=== PATIENT | male | born 1965 | race Caucasian/White ===

== ENCOUNTER 2023-09-15 18:44 | Inpatient (IN) | payer OTHER ==
[~2023-09-15] VITALS: Ht 182.9 cm; Wt 111.1 kg
[2023-09-15] MEDS ORDERED: Thiamine HCl 100 MG Tab PO ONE (19:55)
[2023-09-15] MEDS ORDERED: Lactated Ringer's 1,000 ML IV ONE ×2 (19:55→22:40)
[2023-09-15 21:26] LABS: BASOPHILS ABSOLUTE AUTO 0.11 K/mm3 (0.00-0.23); BASOPHILS PERCENT AUTO 1 % (0-2); EOSINOPHILS ABSOLUTE AUTO 0.08 K/mm3 (0.00-0.68); EOSINOPHILS PERCENT AUTO 1 % (0-6); Hematocrit 46.3 % (37.0-53.0); IMMATURE GRAN ABSOLUTE AUTO 0.08 K/mm3 (0.00-0.10); IMMATURE GRAN PERCENT AUTO 1 % (0-1); LYMPHOCYTES ABSOLUTE AUTO 2.54 K/mm3 (0.84-5.20); LYMPHOCYTES PERCENT AUTO 17 % (21-46); MONOCYTES ABSOLUTE AUTO 1.26 K/mm3 (0.16-1.47); MONOCYTES PERCENT AUTO 9 % (4-13); Mean Corpuscular HGB 28.5 pg (26.0-34.0); Mean Corpuscular HGB Conc 32.4 g/dL (31.5-36.5); Mean Corpuscular Volume 88 fL (80-100); Mean Platelet Volume 9.1 fL (9.1-12.4); NEUTROPHILS ABSOLUTE AUTO 10.51 K/mm3 (1.96-9.15); NEUTROPHILS PERCENT AUTO 72 % (41-73); Platelet Count 253 K/mm3 (150-400); RDW Coefficient Variation 17.6 % (11.7-14.2); RDW Standard Deviation 54.6 fL (35.1-46.3); Red Blood Cell Count 5.26 M/mm3 (4.30-5.90); White Blood Cell Count 14.58 K/mm3 (4.00-11.30)
[2023-09-15 21:44] LABS: Source, Urine Clean Catch
[2023-09-15 21:54] LABS: Appearance, Urine Clear (Clear); Bilirubin, Urine Neg (Neg); Blood, Urine 3+ (Neg); Color, Urine Yellow (P-Yellow); Glucose Qualitative, Urine Neg (Neg); Ketones, Urine 1+ (Neg); Leukocyte Esterase, Urine Neg (Neg); Nitrite, Urine Neg (Neg); Protein, Urine 2+ (Neg); Specific Gravity, Urine 1.015 (1.003-1.022); Urobilinogen, Urine NORM (Normal)
[2023-09-15 21:55] LABS: Magnesium, Blood 1.8 mg/dL (1.6-2.4)
[2023-09-15 22:03] LABS: Alanine Aminotransfer (ALT/SGP 14 U/L (12-78); Albumin/Globulin Ratio 0.8 (0.8-1.8); Alk Phos 85 U/L (50-136); Anion Gap 11 mmol/L (3-11); Aspartate Aminotrans (AST/SGOT 19 U/L (12-37); Bilirubin, Total 1.1 mg/dL (0.1-1.0); Blood Urea Nitrogen 26 mg/dL (8-24); Bun/Creatinine Ratio 14.2 (12.0-20.0); CO2, Blood 25 mmol/L (21-32); Calcium, Blood 8.9 mg/dL (8.5-10.1); Chloride, Blood 106 mmol/L (98-108); Creatinine, Blood 1.83 mg/dL (0.60-1.20); Ethanol (Alcohol), Blood, Med <3 mg/dL; Globulin, Blood 3.9 g/dL (2.2-4.0); Glomerular Filtration Rate 42 (60-); Glucose, Blood 150 mg/dL (70-99); Potassium, Blood 4.4 mmol/L (3.5-5.5); Sodium, Blood 138 mmol/L (136-145); Total Protein, Blood 6.9 g/dL (6.4-8.2)
[2023-09-15 22:04] LABS: Bacteria Few /hpf; Squamous Epithelial Cells Rare /hpf (Few); White Blood Cells, Urine 0-2 /hpf (0-5)
[2023-09-15 22:16] LABS: U Amphetamine Screen Not Detected; U Barbituate Screen Not Detected; U Benzodiazapine Screen DETECTED; U Buprenorphine Screen DETECTED; U Cannabinoids Screen Not Detected; U Cocaine Screen Not Detected; U Methadone Screen Not Detected; U Methamphetamine Screen Not Detected; U Opiates Screen Not Detected; U Oxycodone Screen Not Detected; U Phencyclidine Screen Not Detected
[2023-09-15] MEDS ORDERED: Aspirin 81 MG Chew PO ONE (22:40)
[2023-09-15 23:05] LABS: Influenza A, PCR NEGATIVE (NEGATIVE); Influenza B, PCR NEGATIVE (NEGATIVE); Resp Syncytial Virus, PCR NEGATIVE (NEGATIVE); SARS-Cov-2 (COVID-19) PCR, MMC NEGATIVE (NEGATIVE)
[2023-09-15] MEDS ORDERED: Ondansetron HCl 2 MG / ML 2ML Vial IV PRN (23:45)
[2023-09-15] MEDS ORDERED: ChlordiazePOXIDE 25 MG Cap PO PRN (23:45)
[2023-09-15] MEDS ORDERED: LORazepam 2 MG/ML 1ML Injection IV PRN (23:45)
[2023-09-15] MEDS ORDERED: Acetaminophen 325 MG TABLET PO PRN (23:45)
[2023-09-16 00:03] LABS: International Normalized Ratio 1.14; Prothrombin Time Results 12.1 Sec (9.7-11.5)
[2023-09-16] MEDS ORDERED: HydrALAZINE HCl 20 MG / ML 1ML Vial IV PRN (00:05)
[2023-09-16] MEDS ORDERED: ChlordiazePOXIDE 25 MG Cap PO PRN (00:05)
[2023-09-16] MEDS ORDERED: LORazepam 2 MG/ML 1ML Injection IV PRN ×2 (00:05)
[2023-09-16] MEDS ORDERED: Thiamine HCl 500 MG in NS 100 ML IV SCH (00:18)
[2023-09-16 03:12] VITALS: BP 137/74
[2023-09-16] MEDS ORDERED: METO50ER PO (03:14)
[2023-09-16] MEDS ORDERED: FOLIC ACID0.4 MG PO (03:15)
[2023-09-16] MEDS ORDERED: VITAMIN B-1100 M1 PO (03:15)
[2023-09-16] MEDS ORDERED: LOSARTAN POTAS100 MG PO (03:16)
[2023-09-16] MEDS ORDERED: AMLO10 PO (03:16)
[2023-09-16] MEDS ORDERED: BUPRENORPHINE-1 EACH SL (03:17)
[2023-09-16] MEDS ORDERED: TRAZ50 PO (03:18)
[2023-09-16] MEDS ORDERED: Phenergan25 M1 PO (03:18)
[2023-09-16] MEDS ORDERED: NICO21TP TOP (03:19)
[2023-09-16] MEDS ORDERED: NICORETTE4 M1 BC (03:20)
[2023-09-16] MEDS ORDERED: METOPROLOL TART25 MG PO (03:21)
[2023-09-16] MEDS ORDERED: MULTI-VITAMIN1 EAC2 PO (03:21)
[2023-09-16] MEDS ORDERED: NALOXONE HCL4 MG (03:21)
[2023-09-16] MEDS ORDERED: Ativan1 MG PO (03:22)
[2023-09-16] MEDS ORDERED: HYDPAM50 PO (03:22)
[2023-09-16] MEDS ORDERED: NEURONTIN300 MG PO (03:23)
[2023-09-16] MEDS ORDERED: CARVEDILOL25 M9 PO (03:24)
[2023-09-16] MEDS ORDERED: CATAPRES0.1 MG PO (03:24)
[2023-09-16] MEDS ORDERED: Azithromycin 500 MG in NS 250 ML IV SCH (03:41)
[2023-09-16] MEDS ORDERED: CefTRIAXone Sodium 1,000 MG in NS 100 ML IV SCH (03:41)
--- NOTE | 2023-09-16 05:55 | NUR ---
PT IS A&O X3 (CONFUSION TO SITUATION), CURRENT TEMP IS 100.3, BP 161/99, PULSE, 87, AND O2 94 ON 3L OF OXYGEN, LAST CIWA SCORE WWAS 16. BOTH ATIVAN AND LIBRIUM WERE GIVEN. PT IS AT A HIGH RISK FOR FALL DUE TO SEVERE WEAKNESS AND CONFUSION. BED ALARM IS ON, CALL LIGHT IN REACH AND BED IS IN A LOWER POSITION.
[2023-09-16 06:18] LABS: BASOPHILS PERCENT AUTO 1 % (0-2); EOSINOPHILS ABSOLUTE AUTO 0.12 K/mm3 (0.00-0.68); EOSINOPHILS PERCENT AUTO 1 % (0-6); Hematocrit 43.9 % (37.0-53.0); Hemoglobin 14.4 g/dL (13.5-17.5); IMMATURE GRAN ABSOLUTE AUTO 0.05 K/mm3 (0.00-0.10); IMMATURE GRAN PERCENT AUTO 0 % (0-1); LYMPHOCYTES PERCENT AUTO 21 % (21-46); MONOCYTES ABSOLUTE AUTO 0.97 K/mm3 (0.16-1.47); MONOCYTES PERCENT AUTO 8 % (4-13); Mean Corpuscular HGB 28.9 pg (26.0-34.0); Mean Corpuscular HGB Conc 32.8 g/dL (31.5-36.5); Mean Corpuscular Volume 88 fL (80-100); Mean Platelet Volume 9.5 fL (9.1-12.4); NEUTROPHILS ABSOLUTE AUTO 7.95 K/mm3 (1.96-9.15); NEUTROPHILS PERCENT AUTO 68 % (41-73); Platelet Count 234 K/mm3 (150-400); RDW Coefficient Variation 17.6 % (11.7-14.2); RDW Standard Deviation 55.9 fL (35.1-46.3); Red Blood Cell Count 4.99 M/mm3 (4.30-5.90); White Blood Cell Count 11.69 K/mm3 (4.00-11.30)
[2023-09-16 06:44] LABS: CHOL/HDL RATIO 2.8; Cholesterol 143 mg/dL (50-200); HDL Cholesterol 51 mg/dL (>39); LDL/HDL RATIO 1.3; Low Density Lipoprotein Chol 65 mg/dL (0-110); Triglycerides 135 mg/dL (30-160); Very Low Density Lipoprot Chol 27 mg/dL (6-32)
[2023-09-16 07:04] LABS: Albumin, Blood 2.8 g/dL (3.4-5.0); Albumin/Globulin Ratio 0.7 (0.8-1.8); Bilirubin, Total 1.1 mg/dL (0.1-1.0); Bun/Creatinine Ratio 15.3 (12.0-20.0); Calcium, Blood 8.7 mg/dL (8.5-10.1); Creatinine, Blood 1.7 mg/dL (0.60-1.20); Globulin, Blood 3.8 g/dL (2.2-4.0); Potassium, Blood 3.8 mmol/L (3.5-5.5); Total Protein, Blood 6.6 g/dL (6.4-8.2)
[2023-09-16 07:57] VITALS: BP 141/83
[2023-09-16] MEDS ORDERED: Aspirin 81 MG Chew PO SCH (09:00)
[2023-09-16] MEDS ORDERED: Enoxaparin 40 MG/0.4 ML SYR SC SCH (09:00)
[2023-09-16] MEDS ORDERED: NS 500 ML IV ONE (10:35)
[2023-09-16] MEDS ORDERED: Nicotine 14 MG PATCH TOP ONE (11:05)
[2023-09-16] MEDS ORDERED: NS 500 ML IV SCH (13:10)
[2023-09-16 16:49] VITALS: BP 123/88
[2023-09-16 19:20] VITALS: BP 149/84
--- NOTE | 2023-09-16 19:35 | NUR ---
SUMMARY- PT ALERT TO SELF AND THAT HE'S IN THE HOSPITAL. HAVING VISUAL HALLUCINATIONS, THINKS THE CALL LIGHT IS HIS PHONE. MAKES MOTIONS WITH HANDS LIKE HE'S TIPPING A GLASS IF DRINKING. CIWAA'S THIS AM 12, DOWN TO 8-10 LATER AFTERNOON. LIBRIUM 50MG X2 TODAY AND ATIVAN 1MG IV ONCE. AT TIMES HE STATES HE FEELS LIKE HE'S CRAWLING OUT OF HIS SKIN. MOST OF THE TIME IS IN THE CHAIR RESTING WITH EYES CLOSED AND AWAKENS WITH A START, ANXIOUS AND AGGITATED DURING WAKING HOURS. INCONT URINE MOST OF THE DAY. MISSED THE URINAL AND DENIED HE HAD TO GO AND WOULD BE INCONT SOON AFTER. SET OFF BED ALARM MULT TIMES USUALLY IN RELATION TO NEEDING TO VOID. USING CHAIR ALARM. REPORTED TO MARIO POWERS RN
[2023-09-17 03:31] VITALS: BP 132/76
--- NOTE | 2023-09-17 04:22 | NUR ---
SHIFT SUMMARY ADMITTED FOR ALCOHOL WITHDRAWAL. FULL CODE. LOW GRADE FEVERS NOTED. LIBRIUM AND TYLENOL GIVEN THIS SHIFT. CIWAS ARE 8 FOR ME, BUT I HAVE STEADILY KEPT ON THE LIBRIUM WITH THIS PATIENT. CARDIAC DIET. A&O X2-3. HE IS IMPULSIVE AT TIMES, BUT PLEASANT. 2 PERSON ASSIST TO BSC DUE TO UNSTEADINESS ON HIS FEET. SIGNIFICANT TREMORS AT TIMES. NO HALLUCINATIONS NOTED THIS SHIFT, HOWEVER HE DID ASK ME WHY HE IS HERE. HX OF POLYSUBSTANCE ABUSE. SUSPICION OF PNEUMONIA, MONITORING LABS. ANTIB RX ARE SCHEDULED.
[2023-09-17 06:25] LABS: Bun/Creatinine Ratio 16.4 (12.0-20.0); Calcium, Blood 8.5 mg/dL (8.5-10.1); Creatinine, Blood 1.77 mg/dL (0.60-1.20); Potassium, Blood 4.3 mmol/L (3.5-5.5)
[2023-09-17 07:20] VITALS: BP 137/82
[2023-09-17] MEDS ORDERED: Nicotine 14 MG PATCH TOP SCH (09:00)
[2023-09-17 14:54] VITALS: BP 111/71
--- NOTE | 2023-09-17 16:17 | NUR ---
SUMMARY- PT ALERT TO SELF, YEAR PRESICENT AND FINALLY REMEMBERING HE IS IN [place] FOR ETOH DETOX. NAPPING FREQ T/O THE DAY. GETS UP OOB WITH SBA WALKER GAITBELT. ADQ STENGTH, LEANS FORWARD SLOW GAIT. CIWA'S 8 THIS AM DOWN TO 6. LIBRIUM 50MG APPROX Q3-4 EFFECTIVE TO AID "SKIN CRAWLING" AND TREMORS, ANXIETY AND AGITATION. TOLERATING FOOD AND FLUID, SNACKS IN BETWEEN. SITS UP IN CHAIR FOR MEALS. OCC SETS OFF BED ALARM AND CHAIR ALARM USUALLY NEEDING TO GO TO BATHROOM, USED CALL LIGHT HALF THE TIME. [facility] CALLED AND STATED THE 5 DAY DETOX WOULD END 09/17 AND PT WOULD NOT BE DC'D TO THEM. PIPE ORGAN TECHNICIAN MADE AWARE AND WORKING ON HOW TO GO ABOUT A [facility] OUTPATIENT PLAN FOR PT TO SUCCEED IN [place]. ELENA IS FRIEND THAT GOT PT TO COME IN FOR DETOX AND INSISTS HE RECEIVE AFTERCARE, STATES HE WILL GO OUT AND USE DRUGS OR ETOH IF HE DOESNT HAVE SOMETHING FOR HIS ANXIETY. WILL REPORT TO NOC RN
[2023-09-17 19:41] VITALS: BP 155/94
[2023-09-18 02:35] VITALS: BP 148/89
--- NOTE | 2023-09-18 05:44 | NUR ---
SHIFT SUMMARY PT ALERT AND ORIENTED X4. CIWA SCORES BETWEEN 8-10 THROUGHOUT THE NIGHT. PT COMPLAINS OF MODERATE ANXIETY AND TREMORS. CONTROLLED WITH LIBRIUM PER EMAR. PT PROVIDED SEVERAL SNACKS AND DRINKS THROUGHOUT THE NIGHT WITH GOOD INTAKE. PT IS A ONE PERSON ASSIST TO STANDBY ASSIST.
--- NOTE | 2023-09-18 06:04 | NUR ---
CTA/HUMAN RESOURCES MANAGER MANUFACTURING I HAVE READ THE HUMAN RESOURCES MANAGER MANUFACTURING DOCUMENTATION. SHIFT SUMMARY IS IN HUMAN RESOURCES MANAGER MANUFACTURING NOTES
[2023-09-18 07:15] VITALS: BP 128/85
[2023-09-18 15:26] VITALS: BP 115/78
--- NOTE | 2023-09-18 18:05 | NUR ---
SHIFT SUMMARY: PATIENT A/O TO SELF, PLACED AND CURRENT SITUATION, PLEASANT AND COOPERATIVE c CARE. PATIENT HAS VISIBLE TREMORS TO BUE'S, CIWA SCORE RANGES 7-8, MEDICATED c PRN LIBRIUM X2 c GOOD EFFECT. PATIENT RESTING ON/OFF IN BED/CHAIR T/O SHIFT. PATIENT SITTING UP IN THE RECLINER CHAIR FOR ABOUT 5 HRS THIS SHIFT, TOLERATED WELL. PATIENT CONTINENCE OF BLADDER, AMBULATES TO BATHROOM/BACK IN BED/CHAIR c 1 ASSIST/GAITBELT/FWW. PATIENT HAS GOOD APPETITE, DENIES CP/PRESSURE, SOB AND DIZZINESS. PATIENT RECEIVED SCHEDULED MEDS PER EMAR. VITAL SIGNS REVIEWED. PIV TO LAC SALINE LOCKED. BED ALARM ON FOR SAFETY. CALL LIGHT IN REACH.
[2023-09-18 19:24] VITALS: BP 125/86
[2023-09-19] MEDS ORDERED: NS 250 ML IV PRN (04:50)
[2023-09-19 05:34] VITALS: BP 138/89
--- NOTE | 2023-09-19 07:31 | NUR ---
MECHANICAL SYSTEM TECHNICIAN SUMMARY NO ACTUE CHANGES. PT A/OX3. CONFUSION AND FORGETFULNESS. CONT WITH CIWA APROX Q4 HOURS. PT SCORE BETWEEN 8-10; VISIBLE TREMORS, MOIST SKIN, ANXIOUS, LIGHT SENSITIVITY, AND SLIGHT AGITATION. MED WITH LIBRIUM. PT NOT USING CALL LIGHT BUT WILL CALL OUT TO GET STAFF ATTENTION.
[2023-09-19 07:38] VITALS: BP 123/80
[2023-09-19 09:34] LABS: Bun/Creatinine Ratio 18.4 (12.0-20.0); Calcium, Blood 8.9 mg/dL (8.5-10.1); Creatinine, Blood 1.03 mg/dL (0.60-1.20); Potassium, Blood 4.7 mmol/L (3.5-5.5)
[2023-09-19] MEDS ORDERED: ChlordiazePOXIDE 10 MG Cap PO PRN (11:25)
--- NOTE | 2023-09-19 13:56 | NUR ---
NOTE: PATIENT REPORTS PAIN 8/10 TO LOWER BACK, STATED "AT HOME I USUALLY SMOKE HEROIN TO HELP EASE THE PAIN.". PATIENT MEDICATED c PO TYLENOL. PATIENT REPORTS "TYLENOL IS NOT GONNA WORK." NOTIFIED DR. LUCIO rogers THIS ISSUE. RECEIVED ORDER TO GIVE OT DOSE OF NORCO PO 5/325 MG NOW.
[2023-09-19] MEDS ORDERED: HYDROcodone 5-APAP 325 TAB PO ONE ×2 (14:05→21:30)
[2023-09-19 15:07] VITALS: BP 130/89
--- NOTE | 2023-09-19 16:27 | NUR ---
SHIFT SUMMARY: PATIENT A/O TO SELF, PLACED AND CURRENT SITUATION, BUT CONFUSED TO DATES. PATIENT VISIBLE TREMORS TO BUE'S HAS IMPROVED. CIWA SCORE RANGES 4-8 THIS SHIFT. PATIENT REPORTS PAIN 8/10 TO LOWER BACK, MEDICATED c PRN TYLENOL c NO EFFECT. PATIENT MEDICATED c PO OT DOSE NORCO, REPORTS PAIN DOWN TO 3/10. PATIENT SHOWERED, LINEN CHANGED, CONTINENCE OF BOWELS/BLADDER, AMBULATES TO BATHROOM/BACK IN BED/CHAIR c SBA/FWW/GAITBELT. PATIENT SLEPT ON/OFF IN BED/RECLINER T/O SHIFT. PATIENT EATING AND DRINKING WELL. PATIENT ALSO PROVIDED c SNACKS (YOGURT) PER REQUEST T/O SHIFT. PATIENT HAS NO COMPLAINTS OR DENIES NEW CONCERNED, WHEN ASKED. VITAL SIGNS REVIEWED. PIV TO YAAKOV SALINE LOCKED. BED ALARM ON FOR SAFETY. CALL LIGHT IN REACH.
[2023-09-19 19:27] VITALS: BP 119/72
[2023-09-20 04:03] VITALS: BP 149/97
--- NOTE | 2023-09-20 04:14 | NUR ---
STEAM PRESS TENDER SUMMARY PT A/OX3. FORGETFUL. PT AFFECT FLAT AND WITHDRAWN. PT DOES NOT USE CALL LIGHT BUT WILL CALL OUT VERBALLY TO MAKE NEEDS KNOWN. PT C/O OF CHRONIC LOW BACK PAIN WITH 10/10 PAIN. CALL TO BEEF RIBBER/DR BRUNO. NEW ORDER FOR 1X NORCO 3/325. NO TREMORS--VISIBLE OR FELT. PT DENIES [place], LIGHT SENSITIVITY, AGITATION. PT IS ANIXIOUS AND ASKING ABOUT GOING HOME. PT ASKED ABOUT GOING OUTSIDE TO SMOKE. EDUCATION REINFORCED ABOUT IGNITION SOURCES AND BEING A NON SMOKING CAMPUS. PT WOULD HAVE TO LEAVE HOSPITAL TO SMOKE. PT HAS NICOTINE PATCH IN PLACE ON SHOULDER. PT WAS FIXATED ON LEAVING TO SMOKING AND POTENTIALLY DISCHARGING FROM HOSPITAL. HOWEVER, PT WAS AGREEABLE/REDIRECTABLE TO RETURNING TO BED AND WAITING TO SEE DR IN THE MORNING. PT REMAINS A 1 PERSON ASSIST TO BATHROOM WITH FWW. BED ALARM IN PLACE.
[2023-09-20 07:03] LABS: Bun/Creatinine Ratio 15.7 (12.0-20.0); Calcium, Blood 9.5 mg/dL (8.5-10.1); Creatinine, Blood 1.02 mg/dL (0.60-1.20); Potassium, Blood 4.2 mmol/L (3.5-5.5)
[2023-09-20 07:26] VITALS: BP 125/84
[2023-09-20] MEDS ORDERED: Naloxone HCL 4 MG SPRAY (1 UNIT) PRN (07:50)
[2023-09-20] MEDS ORDERED: Carvedilol 3.125 MG Tab PO SCH (08:00)
[2023-09-20] MEDS ORDERED: Buprenorphine HCL/Naloxone HCL 2-0.5MG 1 EA SL SCH (09:00)
[2023-09-20] MEDS ORDERED: Losartan Potassium 50 MG Tab PO SCH (09:00)
[2023-09-20] MEDS ORDERED: Multivitamins 1 Tab PO SCH (09:00)
[2023-09-20] MEDS ORDERED: Gabapentin 300 MG Cap PO SCH (09:00)
[2023-09-20] MEDS ORDERED: CARV3.125 PO (14:43)
[2023-09-20] MEDS ORDERED: LOSA25 PO (14:45)
[2023-09-20 14:46] VITALS: BP 128/83
--- NOTE | 2023-09-20 17:01 | NUR ---
DISCHARGE INSTRUCTIONS COMPLETED AND DISCUSSED WITH PT EXPRESSING UNDERSTANDING. SCRIPTS FAXED TO [facility]. FRIEND FROM [facility] [employer] [facility] HERE TO PICK PT UP AND TAKE HIM HOME. TO [facility] VIA W/C.
[2023-09-20] MEDS ORDERED: TraZODone HCl 100 MG Tab PO SCH (21:00)
== END 2023-09-20 15:45 | disposition home or self-care (01) | DRG 896 ==
LOC: ER 18:44 → MEDS 18:45 → ENPENDDIS 09-20 13:03 → MEDS 09-20 15:45
PROVIDERS: Emergency Medicine; Internal Medicine; ADMIT Student in an Organized Health Care Education/Training Program
PROC: HZ2ZZZZ Detoxification Services for Substance Abuse Treatment (ICD-10-PCS; principal; 2023-09-15)
DX: F10.239 Alcohol dependence with withdrawal, unspecified (principal); I21.A1 Myocardial infarction type 2; J69.0 Pneumonitis due to inhalation of food and vomit; J96.01 Acute respiratory failure with hypoxia; N17.9 Acute kidney failure, unspecified; E86.1 Hypovolemia; F19.10 Other psychoactive substance abuse, uncomplicated; F17.210 Nicotine dependence, cigarettes, uncomplicated; N18.30 Chronic kidney disease, stage 3 unspecified; Z71.6 Tobacco abuse counseling
CPT/HCPCS: 0241U; 36415; 71045; 80048; 80053; 80061; 81001; 83036; 83605; 83735; 83880; 84145; 84443; 84484; 85025; 85610; 87040; 87070; 87205; 93005; 93010; 94760; 96361; 96365; 96366; 96367; 96372; 96375; 96376; 97162; 97530; 99285-25; A9270; G0378; J0456; J0696; J1650; J2060; J3411; J7040; J7050; J7120